=== PATIENT | female | born 1950 | race Caucasian/White ===

== ENCOUNTER → 2017-08-02 09:06 | Outpatient (CLI) | payer MEDICARE, SELFPAY ==
[2017-08-02 10:42] LABS: AST(SGOT) 10 U/L (15-37); Alanine Aminotransfer ALT/SGPT 19 U/L (13-56); Cholesterol 202 mg/dL (200); High Density Lipoprotein 59 mg/dL; T4 Total, Thyroxin 10.4 ug/dL (4.8-13.9); Thyroid Stim Hormone (TSH) 0.76 uIU/mL (0.358-3.74); Triglycerides 85 mg/dL; Very Low Density Lipoprotein 17 mg/dL (5-40)
== END ==
PROVIDERS: Visit Provider Family Medicine
DX: Z00.00 Encounter for general adult medical examination without abnormal findings (principal)
CPT/HCPCS: 36415; 80061; 84436; 84443; 84450; 84460

== ENCOUNTER → 2018-05-11 06:57 | Outpatient (CLI) | payer MEDICARE, SELFPAY ==
--- NOTE | 2018-05-11 07:01 | BI_ITS ---
MAMMOGRAPHY - BILATERAL SCREENING REASON FOR EXAM: Female, 67 years old. Routine annual screening examination. PERTINENT HISTORY: Non-contributory. TECHNIQUE: Digital bilateral breast conchita (3D mammographic acquisition) in the CC and MLO projections. 2-D mediolateral oblique (MLO) and craniocaudad (CC) views of both breasts were obtained. CAD: Full Field Digital Mammography with Computer Added Detection was performed. COMPARISON: Comparison is made with prior study dated February 02, 2017 and January 14, 2016. FINDINGS: Breast Composition: There are scattered areas of fibroglandular density. There are no dominant masses or suspicious calcifications. Stable benign-appearing bilateral axillary lymph nodes. No other significant abnormalities are identified. There has been no significant change since the prior study. BI/SCREENING MAMM (CAD), BILAT IMPRESSION: Stable bilateral screening mammogram. Yearly follow-up mammogram recommended. (A) ASSESSMENT CATEGORY: BIRADS Category 2: Benign. A letter regarding these results will be sent to the patient by the facility within 30 days. Approximately 10% of breast cancers are not detected by mammography. A normal mammogram should not delay biopsy of a clinically suspicious abnormality. [id number] Electronically Signed: Edmond Mo MD at 14:49 EST Tel [phone], Service support ,
== END ==
PROVIDERS: Family Provider Family Medicine; PCP Family Medicine; Referring Provider Family Medicine; Visit Provider Family Medicine
DX: Z12.31 Encounter for screening mammogram for malignant neoplasm of breast (principal)
CPT/HCPCS: 77063; 77067

== ENCOUNTER → 2018-08-06 09:08 | Outpatient (CLI) | payer MEDICARE, SELFPAY ==
[2017-01-03 18:05] VITALS: BMI 21.2
[2018-08-06 10:53] LABS: Cholesterol 220 mg/dL (200); High Density Lipoprotein 66 mg/dL; T3 Uptake 37 % (30-39); Thyroid Stim Hormone (TSH) 0.56 uIU/mL (0.358-3.74); Triglycerides 112 mg/dL; Very Low Density Lipoprotein 22 mg/dL (5-40)
== END ==
PROVIDERS: Family Provider Family Medicine; PCP Family Medicine; Referring Provider Family Medicine; Visit Provider Family Medicine
DX: Z00.00 Encounter for general adult medical examination without abnormal findings (principal)
CPT/HCPCS: 36415; 80061; 84439; 84443; 84479

== ENCOUNTER → 2019-08-04 10:07 | Outpatient (CLI) | payer MEDICARE, SELFPAY ==
[2017-01-03 18:05] VITALS: BMI 21.2
[2019-08-04 13:12] LABS: Cholesterol 232 mg/dL (200); High Density Lipoprotein 64 mg/dL; Thyroid Stim Hormone (TSH) 0.29 uIU/mL (0.358-3.74); Triglycerides 106 mg/dL; Very Low Density Lipoprotein 21 mg/dL (5-40)
== END ==
PROVIDERS: PCP Family Medicine; Referring Provider Family Medicine; Visit Provider Family Medicine
DX: Z00.00 Encounter for general adult medical examination without abnormal findings (principal); E03.9 Hypothyroidism, unspecified
CPT/HCPCS: 36415; 80061; 84436; 84443

== ENCOUNTER → 2019-08-09 08:28 | Outpatient (CLI) | payer MEDICARE, SELFPAY ==
[2017-01-03 18:05] VITALS: BMI 21.2
--- NOTE | 2019-08-09 08:30 | BI_ITS ---
MAMMOGRAPHY - BILATERAL SCREENING REASON FOR EXAM: Female, 69 years old. Routine annual screening examination. PERTINENT HISTORY: Non-contributory. TECHNIQUE: Digital bilateral breast kevon (3D mammographic acquisition) in the CC and MLO projections. 2-D mediolateral oblique (MLO) and craniocaudad (CC) views of both breasts were obtained. CAD: Full Field Digital Mammography with Computer Added Detection was performed. COMPARISON: Comparison is made with prior study dated May 11, 2018 and February 02, 2017. FINDINGS: Breast Composition: There are scattered areas of fibroglandular density. There are no dominant masses or suspicious calcifications. Stable benign-appearing bilateral axillary lymph nodes. No other significant abnormalities are identified. There has been no significant change since the prior study. BI/SCREEN MAMM (CAD) W/KEVON BILAT IMPRESSION: Stable bilateral screening mammogram. Yearly follow-up mammogram recommended. (A) ASSESSMENT CATEGORY: BIRADS Category 2: Benign. A letter regarding these results will be sent to the patient by the facility within 30 days. Approximately 10% of breast cancers are not detected by mammography. A normal mammogram should not delay biopsy of a clinically suspicious abnormality. [id number] Electronically Signed: Edmond Mo, at 10:44 EDT , Service support ,
== END ==
PROVIDERS: PCP Family Medicine; Referring Provider Family Medicine; Visit Provider Family Medicine
DX: Z12.31 Encounter for screening mammogram for malignant neoplasm of breast (principal)
CPT/HCPCS: 77063; 77067

== ENCOUNTER → 2019-08-28 11:38 | Outpatient (CLI) | payer MEDICARE, SELFPAY ==
[2017-01-03 18:05] VITALS: BMI 21.2
--- NOTE | 2019-08-28 11:42 | RAD_ITS ---
STUDY: X-RAY RIGHT FOOT, GREAT TOE REASON FOR EXAM: Female, 69 years old. RIGHT GREAT TOE SWELLING AND PAIN FOR A FEW DAYS NOW. NO KNOWN INJURY. TECHNIQUE: 3 view(s) of the toe were obtained. COMPARISON: None. FINDINGS: Normal visualized metatarsus. Normal metatarsophalangeal (M.T.P) joint. Normal interphalangeal joints. Normal phalanges and interphalangeal joints. Soft tissue swelling. RAD/Toe(s) Min 2 Views IMPRESSION: Soft tissue swelling. Electronically Signed: Edmond Mo, at 15:05 EDT , Service support ,
== END ==
PROVIDERS: PCP Family Medicine; Referring Provider Family Medicine; Visit Provider Family Medicine
DX: M79.89 Other specified soft tissue disorders (principal)
CPT/HCPCS: 73660

== ENCOUNTER → 2020-08-06 08:17 | Outpatient (CLI) | payer MEDICARE, SELFPAY ==
[2017-01-03 18:05] VITALS: BMI 21.2
[2020-08-06 10:35] LABS: Anion Gap 4 (5-15); BUN 9 mg/dL (7-18); BUN/Creat Ratio 11.3 RATIO (10-20); Calcium,Total 9.3 mg/dL (8.5-10.1); Chloride 106 mmol/L (98-107); Cholesterol 246 mg/dL (200); EST Glomerular Filtration Rate 75 mL/min (>60); Est Glom Filt Rate - Afr Amer 91 mL/min (>60); Glucose 90 mg/dL (74-106); High Density Lipoprotein 67 mg/dL; Sodium Level 138 mmol/L (136-145); T4 Total, Thyroxin 11.7 ug/dL (4.8-13.9); Triglycerides 138 mg/dL; Very Low Density Lipoprotein 28 mg/dL (5-40)
== END ==
PROVIDERS: PCP Family Medicine; Referring Provider Family Medicine; Visit Provider Family Medicine
DX: Z00.00 Encounter for general adult medical examination without abnormal findings (principal); E03.9 Hypothyroidism, unspecified
CPT/HCPCS: 36415; 80048; 80061; 84436; 84443

== ENCOUNTER → 2020-08-22 09:23 | Outpatient (CLI) | payer MEDICARE, SELFPAY ==
--- NOTE | 2020-08-22 09:26 | BI_ITS ---
MAMMOGRAPHY - BILATERAL SCREENING REASON FOR EXAM: Female, 70 years old. Routine annual screening examination. PERTINENT HISTORY: Non-contributory. TECHNIQUE: Digital bilateral breast conchita (3D mammographic acquisition) in the CC and MLO projections. 2-D mediolateral oblique (MLO) and craniocaudad (CC) views of both breasts were obtained. CAD: Full Field Digital Mammography with Computer Added Detection was performed. COMPARISON: Comparison is made with prior examination dated 08/09/2019 and 05/11/2018. FINDINGS: Breast Composition: There are scattered areas of fibroglandular density. There are no dominant masses or suspicious calcifications. Stable benign appearing bilateral axillary lymph nodes. No other significant abnormalities are identified. There has been no significant change since the prior study. BI/SCREENING MAMM (CAD), BILAT IMPRESSION: Stable bilateral screening mammogram. Yearly follow-up mammogram recommended. (A) ASSESSMENT CATEGORY: BIRADS Category 2: Benign. A letter regarding these results will be sent to the patient by the facility within 30 days. Approximately 10% of breast cancers are not detected by mammography. A normal mammogram should not delay biopsy of a clinically suspicious abnormality. [id number] Electronically Signed: Edmond Mo MD at 10:36 EDT , Service support ,
--- NOTE | 2020-08-22 09:30 | BD_ITS ---
STUDY: DUAL ENERGY X-RAY ABSORPTIOMETRY / DXA REASON FOR EXAM: Female, 70 years old. V780. The patient is postmenopausal. Loss of height. TECHNIQUE: Bone Mineral Density (BMD) measurements of lumbar spine and bilateral hips were obtained. COMPARISON: Comparison is made with prior examination dated 12/27/2014. FINDINGS: Lumbar Spine (L1-L4): g/cm2 (0.716) / T-score (-3.9) / Z-score (-2.2) Findings are suggestive of osteoporosis with a high fracture risk. Left Femur Total: g/cm2 (0.654) / T-score (-2.8) / Z-score (-1.2) Left Femoral Neck: g/cm2 (0.662) / T-score (-2.7) / Z-score (-0.9) Right Femur Total: g/cm2 (0.684) / T-score (-2.6) / Z-score (-1.0) Right Femoral Neck: g/cm2 (0.700) / T-score (-2.4) / Z-score (-0.6) The T-Scores on the most recent prior examination were: Lumbar Spine (L1-L4): There has been worsening of bone density since the previous examination. Left Femur Total: which represents a worsening of 14.8%. Right Femur Total: which represents a worsening of 10.8%. BD/Dexa Bone Density Study IMPRESSION: The patient is considered osteoporotic as outlined below according to World [employer] Organization (WHO) criteria with a high fracture risk. There has been worsening of bone density since the previous examination. Reference Information: The T-score is the number of standard deviations above or below the standard which is normal for young adults at their peak bone mineral density. The World Health Organization (WHO) interprets the T-scores as follows: Above -1 Normal bone density Between -1 and -2.5 Osteopenia Equal to / or below -2.5 Osteoporosis As a practical clinical guideline, osteopenia may be graded as follows: Mild -1 through -1.5 Moderate -1.6 through -2.0 Severe -2.1 through -2.4 The Z-score is the number of standard deviations above or below age-matched controls. A Z-score of less than -1.5 would be considered abnormal. References: 1. NIH Osteoporosis and Related Bone Diseases www osteo.org 2. International Society for Clinical Densitometry www iscd.org 3. National Osteoporosis Foundation www nof.org Electronically Signed: Edmond Mo MD at 14:29 EDT , Service support ,
--- NOTE | 2020-08-22 09:30 | BD_ITS ---
STUDY: DUAL ENERGY X-RAY ABSORPTIOMETRY / DXA REASON FOR EXAM: Female, 70 years old. 627.8Menopausal post menopausalBONE DENSITY REASON FOR EXAM TECHNIQUE: Bone Mineral Density (BMD) measurements of thoracic and lumbar spine hips were obtained. COMPARISON: None. FINDINGS: There is approximate 60% loss of height of the T9 vertebrae. Approximate 50% loss of height of the T12 vertebrae. BD/Vert Fx Assess/Lat Bone Den IMPRESSION: 60% loss of height of the T9 vertebrae and approximately 50% loss of height of the T12 vertebrae. Reference Information: The T-score is the number of standard deviations above or below the standard which is normal for young adults at their peak bone mineral density. The World Health Organization (WHO) interprets the T-scores as follows: Above -1 Normal bone density Between -1 and -2.5 Osteopenia Equal to / or below -2.5 Osteoporosis As a practical clinical guideline, osteopenia may be graded as follows: Mild -1 through -1.5 Moderate -1.6 through -2.0 Severe -2.1 through -2.4 The Z-score is the number of standard deviations above or below age-matched controls. A Z-score of less than -1.5 would be considered abnormal. References: 1. NIH Osteoporosis and Related Bone Diseases www osteo.org 2. International Society for Clinical Densitometry www iscd.org 3. National Osteoporosis Foundation www nof.org Electronically Signed: Edmond Mo MD at 14:37 EDT , Service support ,
== END ==
PROVIDERS: PCP Family Medicine; Referring Provider Family Medicine; Visit Provider Family Medicine
DX: Z12.31 Encounter for screening mammogram for malignant neoplasm of breast (principal); N95.9 Unspecified menopausal and perimenopausal disorder; R93.7 Abnormal findings on diagnostic imaging of other parts of musculoskeletal system
CPT/HCPCS: 77067; 77080; 77086

== ENCOUNTER 2021-01-19 09:44 | Emergency (ER) | payer MEDICARE, SELFPAY ==
[2021-01-19 09:45] VITALS: BP 107/70; PULSE 52; RESP 15; TEMP 36.1; BMI 21.9
--- NOTE | 2021-01-19 09:50 | EDS_ITS ---
HPI History of Present Illness Chief Complaint: Upper Extremity Injury Detail of Chief Complaint: Injury right shoulder after fall Informant: patient Occured/Mechanism Mechanism/Context: Yes same level fall Onset/Context/Timing Onset: Hours Context: Sudden Onset Timing: Continuous Quality of Pain: Dull and Aching Location: Left shoulder Current Severity: Mild Maximum Severity: Severe Worsened by: Any attempt or passive movement of left upper extremity Relieved by: Nothing Associated Symptoms Associated Symptoms: Positive for Loss of Funtion; Negative for Parasthesia and Weakness Narrative Narrative: Patient is a 70-year-old woman who presents after mechanical fall. She states she turned to turn on a speck it. She fell. She states she landed on a metal sill with her left upper extremity AB ducted. She denies paresth esia, anesthesia medics. Denies head trauma. Denies neck pain. She denies chest pain. Denies shortness of breath. She is not on an anticoagulant. She is right-hand dominant. Tetanus Immunization: Unknown Prior similar symptoms: No Recent Illness/Hospitalization: No PFSH PFSH Home Medications levothyroxine 100 mcg PO DAILY 01/03/17 [History Last Taken Unknown] oxycodone-acetaminophen 1 tab PO Q6H PRN PRN 5 Days #20 tablet 01/19/21 [Rx Last Taken Unknown] Allergy/AdvReac Type Severity Reaction Status Date / Time Sulfa (Sulfonamide AdvReac Nausea Verified 01/19/21 09:45 Antibiotics) Social History (Updated 01/19/21 @ 09:[address] Kraig Benavides MD) household members: none housing: house Smoking Status: Never smoker alcohol intake: current alcohol intake frequency: holidays/special occasions only substance use type: does not use ROS ROS ED Constitutional Constitutional ED: Denies chills, frequent falls or subjective Eyes Eyes: Denies blurry vision, change in vision or diplopia ENT ENT ED: Denies ear pain Cardiovascular Cardiovascular: Denies chest pain Respiratory/Chest Respiratory/Chest: Denies dyspnea or dyspnea on exertion Gastrointestinal Gastrointestinal: Denies nausea or vomiting Musculoskeletal Musculoskeletal: Denies back pain, myalgias or neck pain Integumentary Denies Abrasions or rash Neurologic Neurologic: Denies paresthesias or weakness Hematologic/Lymphatic Hematologic/Lymphatic: Denies easy bleeding or easy bruising EXAM Physical Exam Const Vital Signs: 01/19/21 09:45 Temperature 97.0 F L Temperature Source Temporal Pulse Rate 52 L Respiratory Rate 15 Blood Pressure 107/70 Blood Pressure Mean 82 Positive well nourished and well developed General Appearance ED: well developed and other Patient appears uncomfortable. She does not move her left upper extremity while walking. She holds her left upper extremity internally rotated and against her body. ; Negative for cyanotic or diaphoretic HEENT normocephalic and atraumatic Eyes PERRL and EOMs intact bilaterally Neck supple Chest Wall inspection of chest normal and palpation of chest normal Resp normal respiratory effort and clear to auscultation bilaterally Cardio regular rate, regular rhythm and no murmurs Back/Spine no CVA tenderness Extremity Negative for normal to inspection or full ROM Extremity Narrative: There is swelling over the proximal left humerus. There is pain to palpation. Is no pain the patient of the clavicle or AC joint. Axillary, median, radial and ulnar function intact. There is no pain the patient over the lateral medial epicondyle, olecranon process or radial head. There is no elevation of the distal radius or ulna. Is no pain to base over the carpal bones, metacarpal bones or phalanges. Radial pulses palpable. General Extremety ED: Yes edema General Extremity: edema Neuro oriented x3, CN's II-XII intact bilaterally and no sensory deficits noted Sensorium / Orientation: alert Psych mental status grossly normal Skin Lesions: no lesions Rashes: no rashes Trauma: no lacerations or abrasions MDM MDM MDM Narrative Medical decision making narrative: IV was established and she was medicated with IV morphine and Zofran. X-ray of the shoulder was obtained to assess for fracture, fracture dislocation versus other cause. If there is no evidence of fracture and with her unable to AB duct findings would be consistent with a rotator cuff tear. Radiography Diagnostic Testin view x-ray of the left shoulder reveals an impacted fracture of the humeral head with fragment of the greater tuberosity noted. This is not displaced. Treatment is sling and swath. This was interpreted by me. Discharge Plan Triage Chief Complaint: Upper Extremity Injury ED Provider: Kraig Benavides Dx/Rx/DC Orders Clinical Impression: Fracture of proximal end of left humerus Instructions: ED Fracture, Shoulder Prescriptions: New oxycodone-acetaminophen [oxycodone-acetaminophen] 1 TABLET tablet 1 tab PO Q6H PRN PRN (Reason: pain) 5 Days Qty: 20 RF: 0 No Action levothyroxine 100 MCG tablet 100 mcg PO DAILY RF: 0 Primary Care Provider: Beth Ji Referrals: Beth Ji MD [Primary Care Provider] - Carl Lassiter DO [STAFF PHYSICIAN] - 5-7 Days Disposition Disposition: Home, Self Care
[2021-01-19] MEDS: Ondansetron 4 MG/2 ML Vial IV (10:04)
[2021-01-19] MEDS: Morphine 4 MG/ML Syringe IV (10:05)
--- NOTE | 2021-01-19 10:10 | RAD_ITS ---
STUDY: X-RAY - LEFT SHOULDER REASON FOR EXAM: Female, 70 years old. Injury/Pain TECHNIQUE: 2 view(s) of the shoulder. COMPARISON: None. FINDINGS: There is mild degenerative arthrosis of the glenohumeral articulation. Normal acromioclavicular joint. Normal acromion. There is an acute impacted appearing fracture of the left humeral head with the fracture fragment seen adjacent to the left humeral head. There is narrowing of the left glenohumeral joint without dislocation. There is soft tissue edema. Normal visualized pulmonary apex. RAD/Shoulder min 2 Views IMPRESSION: Acute left humeral head fracture. Electronically Signed: Jenae Casas MD at 10:22 EDT Tel , Service support ,
[2021-01-19 10:58] VITALS: PULSE 56; RESP 17; O2SAT 97
== END 2021-01-19 10:59 | disposition home or self-care (01) ==
LOC: ED 10:52
PROVIDERS: Emergency Provider Emergency Medicine; PCP Family Medicine
DX: S42.202A Unspecified fracture of upper end of left humerus, initial encounter for closed fracture (principal); W19.XXXA Unspecified fall, initial encounter; Z79.899 Other long term (current) drug therapy
CPT/HCPCS: 73030; 96374; 96375; 99284; A4216; J2405

== ENCOUNTER → 2021-01-22 17:06 | Outpatient (CLI) | payer MEDICARE, SELFPAY ==
--- NOTE | 2021-01-22 17:13 | CT_ITS ---
STUDY: CT LEFT SHOULDER REASON FOR EXAM: Female, 70 years old. LT SHOULDER FX, TRUE SIGHT RADIATION DOSAGE (If Supplied By Facility): CTDIvol = ( 26.22 ) mGy, DLP = ( 597.15 ) mGycm TECHNIQUE: The patient was scanned in a multi detector CT scanner. High resolution transaxial imaging was performed without the administration of intravenous contrast material. Sagittal and coronal images were reconstructed.The images will be utilized by the surgical prosthesis junior web developer for measurement and planning purposes.. Individualized dose optimization techniques were used for this CT. COMPARISON: None. FINDINGS: No dislocation. Normal glenoid rim, neck and visualized scapula. Impacted comminuted fracture of the left subcapital region. Significant deformity to the residual humeral head. Normal coracoid process. Normal visualized lateral clavicle. Normal acromioclavicular articulation. Normal visualized muscles and soft tissue structures. CT/Extremity Upper without Contra IMPRESSION: Comminuted left humeral fracture. The images will be utilized by the surgical prosthesis junior web developer for measurement and planning purposes.. Electronically Signed: Zenon Ponce MD at 13:39 EDT , Service support ,
== END ==
PROVIDERS: PCP Family Medicine; Visit Provider Student in an Organized Health Care Education/Training Program
DX: S42.222A 2-part displaced fracture of surgical neck of left humerus, initial encounter for closed fracture (principal)
CPT/HCPCS: 73200

== ENCOUNTER 2021-02-04 05:20 | Day surgery (SDC) | payer MEDICARE, SELFPAY ==
--- NOTE | 2021-01-27 13:59 | EKG12_ITS ---
Test Reason : PRE OP Blood Pressure : / mmHG Vent. Rate : 060 BPM Atrial Rate : 060 BPM P-R Int : 148 ms QRS Dur : 068 ms QT Int : 402 ms P-R-T Axes : 070 063 055 degrees QTc Int : 402 ms Normal sinus rhythm Low voltage QRS Borderline ECG Confirmed by KURTIS MANTILLA, WILFREDO ([id number]), purchasing expeditor CHASTITY TODD ([id number]) on 01/28/2021 1:54:30 PM Referred By: Carl Lassiter Confirmed By:WILFREDO HULL MD
[2021-01-27 15:26] LABS: Magnesium 2.3 mg/dL (1.6-2.6)
[2021-01-27 15:28] LABS: Thyroid Stim Hormone (TSH) 4.51 uIU/mL (0.358-3.74)
[2021-02-04] VITALS (7 sets, daily range): BP systolic 93–120; BP diastolic 59–72; PULSE 62–80; RESP 16; TEMP 36.4–36.8; O2SAT 92–98; BMI 21.7
[2021-02-04] MEDS: Gabapentin 600 MG Tablet PO (06:30)
[2021-02-04] MEDS: Acetaminophen 500 MG Tablet 1000 MG PO (06:30)
[2021-02-04] MEDS: Lactated Ringers 1,000 ML 100 ML IV (06:30)
[2021-02-04 06:31] LABS: Bedside Glucose 92 mg/dL (70-110)
[2021-02-04] MEDS: Cefazolin 2 GM in 0.9% Normal Saline 100 ML IV (07:41)
--- NOTE | 2021-02-04 10:06 | PCM.DC ---
Discharge Instructions Follow Up Care Test Results: Test results from this visit will be discussed in further detail at your follow-up appointment, if applicable. Discharge Plan Admission Attending Provider: Carl Lassiter Primary Care Provider: Beth Ji Instructions Additional Instructions / Restrictions: Maintain sling at all times except for hygiene until follow-up. Okay for pendulums of the left arm, otherwise no active or passive range of motion until follow-up in 2 weeks. Okay to shower on postoperative day #4., 02/08/2021. Maintain dressing x7 days. Then okay to remove and leave open to air if no drainage Discharge Orders/Prescriptions Prescriptions: New oxycodone-acetaminophen [Percocet] 5-325 mg tablet 1 tab PO Q6H PRN (Reason: pain) 7 Days Qty: 28 RF: 0 No Action levothyroxine 100 MCG tablet 100 mcg PO DAILY RF: 0 oxycodone-acetaminophen [oxycodone-acetaminophen] 1 TABLET tablet 1 tab PO Q6H PRN PRN (Reason: pain) 5 Days Qty: 20 RF: 0 Referrals / Follow Up: Beth Ji MD [Primary Care Provider] - Carl Lassiter DO [STAFF PHYSICIAN] - Within 2 Weeks Disposition Disposition (needs filled in before D/C Order can be placed): Home, Self Care
--- NOTE | 2021-02-04 10:23 | PCM.OPRPT ---
Problems Associated Problem List Diagnoses (1) Closed 4-part fracture of proximal end of left humerus: Report of Operation Date of Procedure: 02/04/21 Description of Surgical Findings:: Preoperative diagnosis: Left displaced 4 part proximal humerus fracture Postoperative diagnosis: Left displaced 4 part proximal humerus fracture Procedure: Left reverse total shoulder arthroplasty Surgeon: Carl Lassiter DO Micro Computer Data Processor: JERZY Pederson Anesthesia: General endotracheal Anesthesiologist: Dr. Mikaela Hummel CRNA Complications: None apparent Drains: None Estimated blood loss: 100 cc Urinary output: None cc IV fluids: 1500 cc crystalloid Specimens: None Surgical implants: Arthrex universe modular glenoid system 24 mm baseplate 20 degree full augment, modular post 20 mm, nonlocking screw 4.5 mm x 40 mm, 4.5 mm x 28 mm, locking screws times two 5.5 mm x 16 mm, glenosphere 36 millimeters +2.5 inferior/24, glenosphere screw, universe reverse humeral stem size five 135 degree modular, suture cup 36 neutral, humeral insert 36+3 Surgical indications: This is a 70-year-old female who had a fall and sustained a left four-part proximal humerus fracture. She was seen in the [facility] emergency department and follow-up in my office. CT was obtained confirming the diagnosis. There was a head split component. Given the CT findings and her age, I recommended a reverse shoulder arthroplasty. We discussed open reduction internal fixation versus reverse. The risk, benefits, alternatives the procedure was reviewed with the patient and she agreed to proceed. Risks included but were not limited to bleeding, infection, instability, loss of life or limb, risk of anesthesia, neurovascular injury, persistent pain, stiffness, prolonged immobilization, need for additional surgery, loosening of orthopedic hardware, nonhealing of tuberosities. She expressed understanding and wished to proceed with surgery. Surgical details: Patient arrived to [facility] morning of 02/04/2021 and was greeted by the same day surgery staff. Prior to her procedure, I greeted the patient in the preoperative holding area I identified the patient by name, record number, and date of . Informed consent was confirmed. The operative extremity was marked. All questions were answered to patient satisfaction. Patient was also seen by anesthesia staff. Interscalene block was administered prior to procedure for postoperative analgesia. At time of her procedure, patient was brought to the operative suite and positioned supine on a standard table with a beachchair attachment. General anesthesia was induced after all bony prominences were well-padded. Endotracheal tube was placed. After adequate anesthesia and securing the tube, we prepared the patient to be positioned in the beachchair position. A well-padded head filter press tender was applied. The nonoperative extremity was placed in a well arm johnson. She was then brought into the beachchair position after we confirmed an appropriate blood pressure. We then spun the bed 45 degrees. The operative extremity was then prepared. In the butterfly wing of the bed was removed and a well-padded torso strap was applied to secure the patient to the bed. The operative extremity was now free. We then prepped and draped the left upper extremity in normal, sterile orthopedic fashion. We then performed a timeout with all parties in attendance in agreement with the side, site, and operation be performed. 2 g Ancef was administered prior to incision by anesthesia staff, as well as 1 g TXA IV. An additional 1 g TXA IV was administered at time of closure. No concerns were voiced and we elected to proceed. I first marked a standard deltopectoral incision just lateral to the coracoid process in line with the long axis of the humerus. Skin was sharply incised with 10 blade scalpel. I then dissected bluntly through the subcutaneous layers and found the fat stripe between the deltoid and pectoralis major. The cephalic vein was then identified and protected. It was retracted laterally with the deltoid. I then bluntly dissected underneath the deltoid with a Valdivia elevator. This quickly identified the fracture site. The upper 1 cm of the pectoralis major was released. Identified the long head of the biceps tendon in the intertubercular groove. This was tenodesed in situ with #2 FiberWire. I then amputated the biceps proximal to the tenodesis site and followed the tendon to the supraglenoid tubercle where it was amputated. This identified the lesser and greater tuberosities. I tagged the supraspinatus and subscapularis respectively with #2 FiberWire suture for later repair. The humeral head was then exposed and removed, placed on the back table. Retractors were placed around the glenoid to expose the glenoid. Glenoid labrum was removed with Bovie cautery protecting the axillary nerve, which was in close proximity to the glenoid neck. We then used the 5D guide from Arth[employer] to position our centering pin. Guide was removed and pin was analyzed and compared to preoperative planning. It appeared to be in appropriate position. We used the 20 degree augment reamer with the apex of the augment at approximately at 1:00 on the clock face. This was reamed about 3 mm deep. We then remove the reamer and used the cannulated drill for the central 20 mm post. Pin was removed. Post and baseplate was assembled on the back table. We then impacted the assembled baseplate to an appropriate depth. A [place] was used to confirm depth. Cortical screws then were placed in the most superior and inferior holes with good purchase. Anterior and posterior holes were then placed with 16mm locking screws. The baseplate had excellent purchase and the entire scapula would rotate with rotation of the baseplate. We then impacted the 36 mm glenosphere with a +2.5 mm inferior eccentricity. Locking screw was then placed in the centering hole of the glenosphere with excellent purchase. We then removed retractors and turned our attention to the humerus. The calcar appeared to be intact. We utilized 40 mm retroversion for placement of our broaches. We were able to place a size 5 broach with good interference fit in the metaphysis. We selected this as our final size. I copiously irrigated the canal. Broach was placed on hand and then impacted to an appropriate depth. I then trialed with a +3 mm poly and brought through a range of motion. No significant impingement or instability was noted even prior to tuberosity repair. Trials were removed and final +3 mm polyethylene was placed. I then copiously irrigated the wound with irrisept and normal saline solution. Hemostasis was excellent. The axillary nerve was visualized and appeared to be intact. I then passed a cerclage #2 FiberWire through the supraspinatus around the back of the implant and through the subscapularis. This was tied to close the rotator interval. I then secured the subscapularis tag suture and supraspinatus tack suture to drill holes in the anterior humeral neck. I then tied the sutures together to again close interval. I then placed a [id number] suture through the anterior superior region of the supraspinatus down to the subscapularis to further close the rotator interval. The entire proximal humeral segment appeared to move as 1. We then copiously irrigated the wound with normal saline solution. We reapproximated the interval with 0 Vicryl suture. Subcutaneous layers were reapproximated with 3-0 Monocryl suture. Skin was finally running V-Loc Monocryl suture and Dermabond. A sterile silver Mepilex dressing was applied. Patient was then placed in a abduction pillow sling. Patient tolerated procedure well without complication. She was positioned back in the supine position extubated in the operative suite. She was transferred to the [facility] and subsequently to PACU in stable condition. Intraoperative medications: 2 g Ancef IV, 1 g TXA x2 IV Post Operative Plan: Weightbearing: Nonweightbearing left upper extremity, okay for pendulums. Range of motion of wrist elbow and hand as tolerated. Antibiotics: 2 g Ancef IV prior to incision, Keflex x23 hours postop DVT Prophylaxis: Aspirin 81 mg twice daily starting tomorrow Dean: None Dressing: Maintain silver dressing x7 days. Okay to shower dressing on started on day 4 X-Rays: 2 weeks postop in the office Pain Medication: Percocet Rx upon discharge Follow-up: 2 weeks post-operatively with me in the office Discharge summary: Date of admission: 02/04/2021 Date of discharge 02/04/2021 Hospital course: Patient underwent the above procedure with plan same-day surgery. She tolerated procedure well without complication. She was able to be safely discharged to home in stable condition.
--- NOTE | 2021-02-04 10:40 | RAD_ITS ---
STUDY: X-RAY - LEFT SHOULDER REASON FOR EXAM: Postoperative evaluation of left shoulder arthroplasty. TECHNIQUE: 2 view(s) of the shoulder. COMPARISON: Radiographs 01/19/2021. FINDINGS: There is a reverse shoulder arthroplasty without evidence of complication. There is postoperative gas in the soft tissues. There is mild atelectasis at the left lung base. RAD/Shoulder min 2 Views IMPRESSION: Uncomplicated left shoulder arthroplasty. Electronically Signed: Ru Germain MD at 11:11 EDT Tel , Service support ,
== END 2021-02-04 12:25 | disposition home or self-care (01) ==
LOC: SDC 05:27 → AC 05:28
PROVIDERS: Anesthesiology; PCP Family Medicine; Referring Provider Student in an Organized Health Care Education/Training Program; Visit Provider Student in an Organized Health Care Education/Training Program
PROC: (CPT 23472; principal; 2021-02-04 07:00)
DX: S42.242A 4-part fracture of surgical neck of left humerus, initial encounter for closed fracture (principal); W19.XXXA Unspecified fall, initial encounter; Y93.9 Activity, unspecified; Y92.9 Unspecified place or not applicable; Y99.9 Unspecified external cause status; M19.90 Unspecified osteoarthritis, unspecified site; Z79.899 Other long term (current) drug therapy; Z79.890 Hormone replacement therapy; E03.9 Hypothyroidism, unspecified; E78.00 Pure hypercholesterolemia, unspecified
CPT/HCPCS: 01638; 23472; 64450; 36415; 73030; 82962; 83735; 84443; 87077; 87081; 93005; C1713; C1776; J7120; J2405; J3475

== ENCOUNTER 2021-08-11 16:17 | Outpatient (CLI) | payer MEDICARE, SELFPAY ==
[2021-08-11 18:22] LABS: Cholesterol 203 mg/dL (200); High Density Lipoprotein 53 mg/dL; T4 Total, Thyroxin 11.4 ug/dL (4.8-13.9); Thyroid Stim Hormone (TSH) 1.68 uIU/mL (0.358-3.74); Triglycerides 209 mg/dL; Very Low Density Lipoprotein 42 mg/dL (5-40)
== END 2021-08-11 23:59 | disposition home or self-care (01) ==
PROVIDERS: PCP Family Medicine; Visit Provider Family Medicine
DX: Z00.00 Encounter for general adult medical examination without abnormal findings (principal); E03.9 Hypothyroidism, unspecified
CPT/HCPCS: 36415; 80061; 84436; 84443

== ENCOUNTER → 2021-09-03 | Outpatient (CLI) | payer MEDICARE, SELFPAY ==
--- NOTE | 2021-09-03 08:36 | BI_ITS ---
MAMMOGRAPHY - BILATERAL SCREENING REASON FOR EXAM: Female, 71 years old. Routine annual screening examination. PERTINENT HISTORY: Non-contributory. TECHNIQUE: Digital bilateral breast kevon (3D mammographic acquisition) in the CC and MLO projections. 2-D mediolateral oblique (MLO) and craniocaudad (CC) views of both breasts were obtained. CAD: Full Field Digital Mammography with Computer Added Detection was performed. COMPARISON: Comparison is made with prior study dated 08/22/2020 and 08/09/2019. FINDINGS: Breast Composition: There are scattered areas of fibroglandular density. There are no dominant masses or suspicious calcifications. Stable benign-appearing bilateral axillary lymph nodes. No other significant abnormalities are identified. There has been no significant change since the prior study. BI/SCRN MAMM (CAD)W/KEVON BILAT IMPRESSION: Stable bilateral screening mammogram. Yearly follow-up mammogram recommended. (A) ASSESSMENT CATEGORY: BIRADS Category 2: Benign. A letter regarding these results will be sent to the patient by the facility within 30 days. Approximately 10% of breast cancers are not detected by mammography. A normal mammogram should not delay biopsy of a clinically suspicious abnormality. [id number] Electronically Signed: Edmond Mo MD at 9:49 EDT ,
== END | disposition home or self-care (01) ==
LOC: OPBI 08:34
PROVIDERS: PCP Family Medicine; Visit Provider Family Medicine
DX: Z12.31 Encounter for screening mammogram for malignant neoplasm of breast (principal)
CPT/HCPCS: 77063; 77067

== ENCOUNTER → 2022-08-12 | Outpatient (CLI) | payer MEDICARE, SELFPAY ==
[2022-08-12 12:36] LABS: Cholesterol 205 mg/dL (200); High Density Lipoprotein 67 mg/dL; T4 Total, Thyroxin 9.8 ug/dL (4.8-13.9); Thyroid Stim Hormone (TSH) 0.84 uIU/mL (0.358-3.74); Triglycerides 83 mg/dL; Very Low Density Lipoprotein 17 mg/dL (5-40)
== END | disposition home or self-care (01) ==
LOC: MFPLAB 10:24
PROVIDERS: PCP Family Medicine; Referring Provider Family Medicine; Visit Provider Family Medicine
DX: E03.9 Hypothyroidism, unspecified (principal)
CPT/HCPCS: 36415; 80061; 84436; 84443

== ENCOUNTER → 2022-09-04 | Outpatient (CLI) | payer MEDICARE, SELFPAY ==
--- NOTE | 2022-09-04 07:07 | BI_ITS ---
MAMMOGRAPHY - BILATERAL SCREENING REASON FOR EXAM: Female, 72 years old. Routine annual screening examination. PERTINENT HISTORY: Non-contributory. TECHNIQUE: Digital bilateral breast kevon (3D mammographic acquisition) in the CC and MLO projections. 2-D mediolateral oblique (MLO) and craniocaudad (CC) views of both breasts were obtained. CAD: Full Field Digital Mammography with Computer Added Detection was performed. COMPARISON: Comparison is made with prior study dated September 03, 2021 and August 22, 2020. FINDINGS: Breast Composition: There are scattered areas of fibroglandular density. There are no dominant masses or suspicious calcifications. Stable benign-appearing bilateral axillary lymph nodes. No other significant abnormalities are identified. There has been no significant change since the prior study. BI/SCRN MAMM (CAD)W/KEVON BILAT IMPRESSION: Stable bilateral screening mammogram. Yearly follow-up mammogram recommended. (A) ASSESSMENT CATEGORY: BIRADS Category 2: Benign. A letter regarding these results will be sent to the patient by the facility within 30 days. Approximately 10% of breast cancers are not detected by mammography. A normal mammogram should not delay biopsy of a clinically suspicious abnormality. [id number] Electronically Signed: Edmond Mo MD at 8:58 EDT ,
== END | disposition home or self-care (01) ==
LOC: OPBI 07:04
PROVIDERS: PCP Family Medicine; Referring Provider Family Medicine; Visit Provider Family Medicine
DX: Z12.31 Encounter for screening mammogram for malignant neoplasm of breast (principal)
CPT/HCPCS: 77063; 77067

== ENCOUNTER → 2023-08-12 | Outpatient (CLI) | payer MEDICARE, SELFPAY ==
[2023-08-12 17:55] LABS: Hemoglobin A1c 5.3 % (3.8-5.6)
[2023-08-12 18:12] LABS: Cholesterol 225 mg/dL (200); High Density Lipoprotein 64 mg/dL; T4 Total, Thyroxin 9.7 ug/dL (4.8-13.9); Thyroid Stim Hormone (TSH) 0.78 uIU/mL (0.358-3.74); Triglycerides 155 mg/dL; Very Low Density Lipoprotein 31 mg/dL (5-40)
== END | disposition home or self-care (01) ==
LOC: MFPLAB 14:21
PROVIDERS: PCP Family Medicine; Visit Provider Family Medicine
DX: R11.0 Nausea (principal); E03.9 Hypothyroidism, unspecified; Z13.1 Encounter for screening for diabetes mellitus; Z79.899 Other long term (current) drug therapy
CPT/HCPCS: 36415; 80061; 83036; 84436; 84443

== ENCOUNTER → 2023-09-16 | Outpatient (CLI) | payer MEDICARE, SELFPAY ==
--- NOTE | 2023-09-16 14:43 | BI_ITS ---
MAMMOGRAPHY - BILATERAL SCREENING REASON FOR EXAM: Female, 73 years old. Routine annual screening examination. PERTINENT HISTORY: Non-contributory. TECHNIQUE: Digital bilateral breast kevon (3D mammographic acquisition) in the CC and MLO projections. 2-D mediolateral oblique (MLO) and craniocaudad (CC) views of both breasts were obtained. CAD: Full Field Digital Mammography with Computer Added Detection was performed. COMPARISON: Comparison is made with prior study dated September 04, 2022 and September 03, 2021. FINDINGS: Breast Composition: There are scattered areas of fibroglandular density. There are no dominant masses or suspicious calcifications. Stable benign-appearing bilateral axillary lymph nodes. No other significant abnormalities are identified. There has been no significant change since the prior study. BI/SCRN MAMM (CAD)W/KEVON BILAT IMPRESSION: Stable bilateral screening mammogram. Yearly follow-up mammogram recommended. (A) ASSESSMENT CATEGORY: BIRADS Category 2: Benign. A letter regarding these results will be sent to the patient by the facility within 30 days. Approximately 10% of breast cancers are not detected by mammography. A normal mammogram should not delay biopsy of a clinically suspicious abnormality. [id number] Electronically Signed: Edmond Mo MD at 8:37 EDT ,
== END | disposition home or self-care (01) ==
LOC: OPBI 14:42
PROVIDERS: PCP Family Medicine; Referring Provider Family Medicine; Visit Provider Family Medicine
DX: Z12.31 Encounter for screening mammogram for malignant neoplasm of breast (principal)
CPT/HCPCS: 77063; 77067

== ENCOUNTER 2024-01-29 09:18 | Emergency (ER) | payer MEDICARE, SELFPAY ==
[2024-01-29 09:19] VITALS: BP 163/74; PULSE 63; RESP 14; TEMP 36.3; O2SAT 98; BMI 21.7
--- NOTE | 2024-01-29 10:02 | CT_ITS ---
INDICATION: left flank pain EXAMINATION: CT ABDOMEN AND PELVIS WITHOUT CONTRAST - CT Abdomen And Pelvis W/O Contrast Injection TECHNIQUE: Helically acquired images were obtained of the abdomen and pelvis without oral or IV contrast. The protocol utilizes one or more of the following dose reduction techniques: automated exposure control, adjustment of mA and/or kV according to patient size,and/or use of iterative reconstruction technique. IV Contrast dosage and agent: None. Oral contrast: None. RADIATION DOSAGE (If Supplied By Facility): CTDIvol = ( 6.07 ) mGy, DLP = ( 260.92 ) mGycm COMPARISON: No relevant prior comparison study available FINDINGS: LOWER CHEST: Lung bases are clear. No cardiomegaly or pericardial effusion. The lack of intravenous contrast limits evaluation of solid visceral organs. LIVER: Homogeneous. No focal mass. GALLBLADDER AND BILIARY TREE: No calcified gallstones. No gallbladder distension or wall edema. No intra- or extrahepatic biliary ductal dilation. PANCREAS: No focal cystic or solid mass. SPLEEN: There is a splenic granuloma. ADRENAL GLANDS: No nodules. KIDNEYS AND URETERS: Normal renal size and position. No hydronephrosis. PERITONEUM: No ascites or free air. No other fluid collection. BOWEL: No evidence of acute appendicitis. No stomach or bowel distension. There are diverticula arising from the colon. No focal inflammatory change. LYMPH NODES: No enlarged mesenteric or retroperitoneal lymph nodes. VESSELS: Aorta is non-dilated. There are peripheral calcifications of the abdominal aorta. URINARY BLADDER: Unremarkable. REPRODUCTIVE ORGANS: No pelvic masses. ABDOMINAL WALL: No discrete abdominal or pelvic wall hernia. BONES: The bones are diffusely demineralized. There is a T12 superior endplate deformity that appears chronic. CT/Abdomen/Pelvis without Cont IMPRESSION: Colonic diverticulosis. Atherosclerosis. Electronically Signed: Margaux Lazo MD at 11:25 EDT ,
--- NOTE | 2024-01-29 10:03 | EX.ED.DYSGE1 ---
HPI History of Present Illness Chief Complaint: Other, Pain/Inj Detail of Chief Complaint: Back pain Informant: patient Narrative Narrative: Patient presents to the emergency department complaint of left-sided back pain that she has had since yesterday. Patient tells me that she had shingles in 2006 and since then she will have intermittent nerve type pain. She called her primary care physician yesterday who started her on gabapentin and Valtrex. Today having severe pain in the left flank area and she vomited once. She denies urinary symptoms. Pain is there all the time but waxes and wanes in intensity. No history of kidney stones. No trauma or injury to her back. She denies urinary symptoms. [facility] Medical History (Updated 01/29/24 @ 11:[address] Miriam Santos DO) Wears glasses Alcohol use Thyroid disease Osteoarthritis High cholesterol Non-smoker History of stress test History of irregular heartbeat Home Medications ?Medication ?Instructions ?Recorded ?Last Taken ?Type levothyroxine 100 mcg tablet 100 mcg PO DAILY thyroid 01/03/17 Unknown History oxycodone-acetaminophen 5 mg-325 1 tab PO Q6H PRN PRN pain 5 days 01/19/21 Unknown Rx mg tablet #20 TABLETS aspirin 81 mg tablet,delayed 81 mg PO BID 14 days #28 tabs 02/04/21 Unknown Rx release cephalexin 500 mg capsule 500 mg PO Q8 1 day #3 caps 02/04/21 Unknown Rx oxycodone-acetaminophen 5 mg-325 1 tab PO Q6H PRN pain 7 days #28 02/04/21 Unknown Rx mg tablet (Percocet) tabs hydrocodone-acetaminophen 5-325mg 1 tab PO Q4H PRN PRN Pain 2 days 01/29/24 Unknown Rx 5mg-325mg #15 TABLETS Allergy/AdvReac Type Severity Reaction Status Date / Time Sulfa (Sulfonamide AdvReac Nausea Verified 01/29/24 09:19 Antibiotics) Surgical History History of colonoscopy History of partial hysterectomy History of thyroid surgery History of appendectomy Social History (Updated 01/19/21 @ 09:[address] Kraig Benavides MD) household members: none housing: house Smoking Status: Never smoker alcohol intake: current alcohol intake frequency: holidays/special occasions only substance use type: does not use ROS ROS ED Review of Systems ROS Unobtainable: other Constitutional Constitutional ED: Reports lethargy; Denies chills, fever(s), sweats or weight loss Eyes Eyes: Denies blurry vision, change in vision or diplopia ENT ENT ED: Denies rhinorrhea or sore throat Cardiovascular Cardiovascular: Denies chest pain, orthopnea or racing heartbeat Respiratory/Chest Respiratory/Chest: Denies cough, dyspnea, dyspnea on exertion, orthopnea or sputum Gastrointestinal Gastrointestinal: Denies abdominal pain, diarrhea, nausea or vomiting Genitourinary Genitourinary ED: Denies dysuria, hematuria or urinary frequency Musculoskeletal Musculoskeletal: Reports back pain; Denies arthralgias, myalgias or neck pain Integumentary Denies abscess, Abrasions or rash Neurologic Neurologic: Denies headache(s) or weakness Psychiatric Psychiatric: Denies anxiety, depression or suicidal thoughts Endocrine Endocrinology: Denies polydipsia, polyphagia or polyuria Hematologic/Lymphatic Hematologic/Lymphatic: Denies easy bleeding, easy bruising or lymphadenopathy Allergic/Immunologic Allergic/Immunologic ED: Denies mouth swelling, tongue swelling or urticaria EXAM Physical Exam Const Vital Signs: 01/29/24 09:19 01/29/24 10:25 Temperature 97.3 F L Temperature Source Temporal Pulse Rate 63 Respiratory Rate 14 Respiratory Effort Normal Blood Pressure 163/74 H Blood Pressure Mean 103 Pulse Ox 98 Oxygen Delivery Method Room Air Positive well nourished and well developed General Appearance ED: well developed and NAD HEENT Reports TM's clear and moist mucous membranes normocephalic and atraumatic; Negative for trauma or tenderness Tympanic Membrane ED: Yes TM's clear Eyes PERRL and EOMs intact bilaterally General Eye ED: Negative for pale conjunctiva or scleral icterus Neck no lymphadenopathy, supple and no JVD General: Negative for tenderness Chest Wall inspection of chest normal and palpation of chest normal Chest: Negative for tenderness Resp normal respiratory effort and clear to auscultation bilaterally Effort and Inspection: Negative for respiratory distress or pain with movement Auscultation: Negative for rhonchi, wheezes or diminished lung sounds Cardio regular rate, regular rhythm, S1 normal heart sound, S2 normal heart sound and no murmurs Peripheral Pulses: pulses 2+ throughout GI normal to inspection, nondistended, normoactive bowel sounds, soft to palpation, non-tender, non-distended and no masses Back/Spine no thoracic nor lumbar tenderness Back/Spine Narrative: Evaluation of the patient's back reveals no evidence of a rash. She does have some CVA tenderness on the left. No bony tenderness on exam over the thoracic or lumbar spine. Negative straight leg raises. Deep tendon reflexes plus 2 out of 4 bilaterally at the patella and Achilles. Patient has normal L5 extension bilaterally. General Back: CVA tenderness Extremity normal to inspection General Extremety ED: Negative for edema General Extremity: Negative for edema Neuro oriented x3, CN's II-XII intact bilaterally, no sensory deficits noted and gait normal Sensorium / Orientation: awake, alert, oriented to person, oriented to place and oriented to time Motor Exam: strength 5/5 throughout and strength abnormal Psych mental status grossly normal Skin no rashes or lesions noted and no wounds MDM MDM MDM Narrative Medical decision making narrative: Patient with left back/flank pain and history of nerve pain related to shingles. She denies urinary symptoms. In the differential would be neuropathic pain versus kidney stone or UTI or musculoskeletal back pain. IV line established. Patient was medicated with Toradol as well as morphine and Zofran. CBC with differential and obtained showed a white count of 10.9 with hemoglobin 13 and platelet count of 245. Chemistries unremarkable. Urinalysis was normal without signs for infection. Patient had a CT flank that showed diverticulosis otherwise no acute process. Patient had some good pain relief with medication. At this point she will be discharged to home with a prescription for Edwards. Patient to continue taking her gabapentin as well as Valtrex. Advised to follow-up with primary care physician in 3 to 5 days Lab Data Labs: Laboratory Results - last 24 hr 01/29/24 01/29/24 10:13 11:15 WBC 10.9 RBC 4.07 L Hgb 13.1 Hct 38.8 MCV 95.3 MCH 32.2 H MCHC 33.8 RDW Std Deviation 43.4 RDW Coeff of Fletcher 12.3 Plt Count 245 MPV 9.3 Immature Gran % (Auto) 0.600 Neut % (Auto) 77.7 H Lymph % (Auto) 14.5 L [place] % (Auto) 6.4 Eos % (Auto) 0.4 Baso % (Auto) 0.4 Absolute Neuts (auto) 8.5 H Absolute Lymphs (auto) 1.57 Nucleated RBC % 0 Sodium 133 L Potassium 4.0 Chloride 100 Carbon Dioxide 25.0 Anion Gap 8 BUN 8 Creatinine 0.88 Estim Creat Clear Calc 45.69 Est GFR (MDRD) Af Amer 81 Est GFR (MDRD) Non-Af 67 BUN/Creatinine Ratio 9.1 L Glucose 127 H Calcium 9.3 Urine Color Yellow Urine Clarity Clear Urine pH 5.0 Ur Specific [place] 1.020 Urine Protein 15 H Urine Glucose (UA) Normal Urine Ketones 5 H Urine Occult Blood 10 H Urine Nitrite Negative Urine Bilirubin Negative Urine Urobilinogen Normal Ur Leukocyte Esterase 100 H Radiography Diagnostic Testing: Clinical Impression(s) from Imaging Studies Abdomen/Pelvis CT 01/29/24 10:02 IMPRESSION: Colonic diverticulosis. Atherosclerosis. Electronically Signed: Margaux Lazo MD at 11:25 EDT , Discharge Plan Triage Chief Complaint: Other, Pain/Inj ED Provider: Miriam Santos Dx/Rx/DC Orders Clinical Impression: Back pain Instructions: ED Pain, Acute, Uncertain Cause Prescriptions: New hydrocodone-acetaminophen 5-325 mg tablet 1 tab PO Q4H PRN PRN (Reason: Pain) 2 Days Qty: 15 0RF No Action levothyroxine 100 MCG tablet 100 mcg PO DAILY oxycodone-acetaminophen [oxycodone-acetaminophen] 1 TABLET tablet 1 tab PO Q6H PRN PRN (Reason: pain) 5 Days Qty: 20 0RF oxycodone-acetaminophen [Percocet] 5-325 mg tablet 1 tab PO Q6H PRN (Reason: pain) 7 Days Qty: 28 0RF aspirin 81 mg Tablet,Delayed Release (Dr/Ec) 81 mg PO BID 14 Days Qty: 28 0RF cephalexin 500 mg Capsule 500 mg PO Q8 1 Days Qty: 3 0RF Primary Care Provider: Beth Ji Referrals: Beth Ji MD [Primary Care Provider] - 3-5 Days Print Language: Mongolian Disposition Disposition: Home, Self Care
[2024-01-29] MEDS: Ondansetron 4 MG/2 ML Vial IV (10:16)
[2024-01-29] MEDS: Morphine 4 MG/ML Syringe IV (10:16)
[2024-01-29] MEDS: Ketorolac 15 MG/ML Vial IV (10:16)
[2024-01-29 10:32] LABS: Absolute Lymphocyte Count 1.57 X10^3/uL (0.83-4.51); Absolute Neutrophil Count 8.5 X10^3/uL (2.0-7.7); Basophil# 0.04 X10^3/uL; Basophil% 0.4 % (0-1); Eosinophil# 0.04 X10^3/uL; Eosinophils% 0.4 % (0-5); Hematocrit 38.8 % (37-47); Hemoglobin 13.1 g/dL (12.0-15.0); Lymphocyte # 1.57 X10^3/ul (0.83-4.51); Lymphocyte % 14.5 % (19-41); Mean Corp Hgb Conc 33.8 g/dL (32-36); Mean Corpuscular Hgb 32.2 pg (27.0-32.0); Mean Corpuscular Volume 95.3 fL (81-99); Mean Platelet Vol. 9.3 fl (6.2-12.0); Monocyte% 6.4 % (0-10); NRBC Flagged by Analyzer 0 % (0-5); Neutrophil # 8.45 X10^3/uL (2.7-7.7); Neutrophil % 77.7 % (47-70); Platelet Count 245 K/mm3 (150-450); RBC Distribution Width CV 12.3 % (11.6-14.6); RBC Distribution Width SD 43.4 fl (35.1-43.9); Red Blood Count 4.07 M/mm3 (4.2-5.4); White Blood Count 10.9 K/mm3 (4.4-11.0)
[2024-01-29 10:46] LABS: Anion Gap 8 (5-15); BUN 8 mg/dL (7-18); BUN/Creat Ratio 9.1 RATIO (10-20); Calcium,Total 9.3 mg/dL (8.5-10.1); Chloride 100 mmol/L (98-107); Creatinine, Serum 0.88 mg/dL (0.55-1.02); EST Glomerular Filtration Rate 67 mL/min (>60); Est Glom Filt Rate - Afr Amer 81 mL/min (>60); Estimated Creatinine Clearance 45.69 ml/min; Glucose 127 mg/dL (74-106); Sodium Level 133 mmol/L (136-145)
[2024-01-29 11:23] LABS: Bacteria 0 SEEN /hpf (None Seen); Mucous, Urine 0 SEEN /hpf (<or=2+); Red Blood Cells-Urine 0 SEEN /hpf (0-5); White Blood Cells 0 SEEN /hpf (0-5)
[2024-01-29 11:24] LABS: Color, Urine Yellow (Yellow); Glucose, Dipstick Normal (Normal); Ketone-Dipstick 5 mg/dl (Negative); Leukocyte Esterase-Dipstick 100 /ul (Negative); Nitrite-Dipstick Negative (Negative); Occult Blood-Urine 10 /ul (Negative); Protein-Dipstick 15 mg/dl (Negative); Urine Bilirubin Dipstick Negative (Negative); Urine Clarity Clear (Clear); Urine Urobilinogen Normal (Normal)
[2024-01-29 11:32] LABS: Squamous Epithelial Cells - UA 0-5 SEEN /hpf (5-10)
[2024-01-29 11:52] VITALS: BP 106/71; PULSE 68; RESP 16; TEMP 36.6; O2SAT 99
[2024-01-29] MEDS: 0.9% Normal Saline (1000mL) 1,000 ML 150 ML IV (11:56)
== END 2024-01-29 12:01 | disposition home or self-care (01) ==
PROVIDERS: Emergency Provider Emergency Medicine; PCP Family Medicine; Visit Provider Emergency Medicine
DX: M54.9 Dorsalgia, unspecified (principal); K57.30 Diverticulosis of large intestine without perforation or abscess without bleeding; E07.9 Disorder of thyroid, unspecified; M19.90 Unspecified osteoarthritis, unspecified site; Z88.2 Allergy status to sulfonamides; Z86.19 Personal history of other infectious and parasitic diseases; Z79.82 Long term (current) use of aspirin; Z79.890 Hormone replacement therapy
CPT/HCPCS: 74176; 80048; 81001; 85025; 96374; 96375; 96376; 99283; A4216; J2405

== ENCOUNTER → 2024-08-24 | Outpatient (CLI) | payer MEDICARE, SELFPAY ==
[2024-08-24 10:53] LABS: Cholesterol 214 mg/dL (<=200); High Density Lipoprotein 67 mg/dL; Low Density Lipoprotein Calc. 128 mg/dL; T4 Total, Thyroxin 10.3 ug/dL (4.8-13.9); Thyroid Stim Hormone (TSH) 0.538 uIU/mL (0.300-4.200); Triglycerides 93 mg/dL; Very Low Density Lipoprotein 19 mg/dL (5-40)
== END | disposition home or self-care (01) ==
LOC: MFPLAB 08:53
PROVIDERS: PCP Family Medicine; Referring Provider Family Medicine; Visit Provider Family Medicine
DX: E03.9 Hypothyroidism, unspecified (principal); Z13.220 Encounter for screening for lipoid disorders
CPT/HCPCS: 36415; 80061; 84436; 84443

== ENCOUNTER → 2024-09-20 | Outpatient (CLI) | payer MEDICARE, SELFPAY ==
--- NOTE | 2024-09-20 12:20 | BI_ITS ---
EXAM: SCRN MAMM (CAD)W/KEVON BILAT 09/20/2024 CLINICAL HISTORY: F, Age 74 y/o , SCREENING FOR BREAST CANCER TECHNIQUE: Bilateral screening digital breast tomosynthesis with 2D and 3D images. Computer aided detection. COMPARISON: Prior exam(s) dated 09/16/2023, 08/27/2022, 09/03/2021. FINDINGS: TISSUE DENSITY: The breast tissue is composed of scattered area of fibroglandular density. Bilateral Breast Mammographic Findings: No significant masses, calcifications or other abnormalities are identified. BI/SCRN MAMM (CAD)W/KEVON BILAT IMPRESSION: Right Breast: BIRADS 1 NEGATIVE. Left Breast: BIRADS 1 NEGATIVE. OVERALL FINAL ASSESSMENT: BIRADS 1 NEGATIVE. RECOMMENDATION: Routine annual follow-up in 1 Year A letter with findings and recommendations will be mailed to the patient. Reading Location: [id number]
== END | disposition home or self-care (01) ==
LOC: OPBI 12:03
DX: Z12.31 Encounter for screening mammogram for malignant neoplasm of breast (principal)
CPT/HCPCS: 77063; 77067

== ENCOUNTER 2024-12-27 12:30 | Outpatient (RCR) | payer MEDICARE, SELFPAY ==
--- NOTE | 2024-11-22 09:11 | HP.PTEVAL_ITS ---
Patient's Visit Information Visit Information Visit Information: LUPIS GARCIA is a 74 year old F referred to Physical Therapy by SHAWNA Morrison with a diagnosis of SPASMS ,THORACIC. Date of Evaluation: 11/22/24 Physical Therapist: Elliot Rosenbaum, PT, Cert MDT, OCS Visit Plan Frequency: 2x /Week Duration: 4 Weeks Plan: PATIENT HAS H/O OSTEOPOROSIS T9-12 PT INTERVENTIONS POSTURAL EX'S ,THORACIC STRENGTHENING ,WB ACTIVITIES ,FUNCTIONAL STRENGTHENING AND ACTIVITY MODIFICATION Subjective Subjective: This 74 y/o female presents [facility] physical therapy with thoracic pain. Patient has had chronic pain which is intermittent. 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 Location of symptoms located mid thoracic region below scapular. Described as ache. Aggravating factors standing ,lifting . Patient symptoms can affect housework cooking ,cleaning . Alleviating rest ,heat. Coughing/sneezing -, Bowel/bladder -.Symptoms doesn't affects sleeping. No imaging or medication. Patient has of osteoporosis bone density 60% loss of height of the T9 vertebrae and approximately 50% loss of height of the T12 vertebrae. Patient has no h/o injury. Patient ex's bike ,machines. Patient condition affects QOL and housework task. Goals to decrease pain with standing ADLS and biking and manage pain. SOCIAL: SINGLE VOCATION: RETIRED LEISURE: bike ,QUILTY Objective Objective: POSTURE: mild forward posture ,thoracic kyphosis NEURO: denies paresthesia/tingling ,reflexes intact PALAPTION: unremarkable AROM: BUE WFL MMT: BUE 4/5 THORACIC ROM: flexion min/mod loss , mod loss ,rotation mod loss no pain Special Tests C/S Radiculapathy - Left Upper limb tension test: Negative C/S Radiculapathy - Right Upper limb tension test: Negative C/S Radiculapathy - Left Spurlings: Negative C/S Radiculapathy - Right Spurlings: Negative C/S Radiculapathy - Left Cervical distraction: Negative C/S Radiculapathy - Right Cervical distraction: Negative C/S Radiculapathy - Left Relief test: Negative C/S Radiculapathy - Right Relief test: Negative Thoracic Sitting: Flexion - Mechanical Response: No effect Thoracic Sitting: Flexion - Symptoms During Testing: No effect Thoracic Sitting: Flexion - Symptoms After Testing: No effect Thoracic Sitting: Extension - Mechanical Response: No effect Thoracic Sitting: Extension - Symptoms During Testing: No effect Thoracic Sitting: Extension - Symptoms After Testing: No effect Thoracic Sitting: Right rotation - Mechanical Response: No effect Thoracic Sitting: Right Rotation - Symptoms During Testing: No effect Thoracic Sitting: Right Rotation - Symptoms After Testing: No effect Thoracic Sitting: Left rotation - Mechanical Response: No effect Thoracic Sitting: Left Rotation - Symptoms During Testing: No effect Thoracic Sitting: Left Rotation - Symptoms After Testing: No effect Balance/Special Test Scores Oswestry Low Back Score: 12 Goals Goal 1:: Patient to be I with HEP for thoracic Goal Time Frame: 4-6 Weeks Goal 2:: Patient improve thoracic ROM for function of recovery for ADLS Goal Time Frame: 4-6 Weeks Goal 3:: Patient to demonstrate 70% improvement with less pain during standing with ADLS Goal Time Frame: 4-6 Weeks Goal 4:: Patient to improve back oswestry score by 5 points to improve QOL Goal Time Frame: 4-6 Weeks Rehabilitation Potential Physical Therapy Diagnosis: This patient has thoracic pain H/O osteoporosis T9- 12 which is chronic with decrease ROM ,pain standing during ADLS thus benefit from skilld PT Rehabilitation Potential: Good Anticipated Interventions Patient/Client Instruction: Educate patient on: Condition and Plan of Care For the Purpose of:: To decrease pain, To increase ROM, To improve muscle performance and motor function, To improve ability to perform ADL's, To increase tolerance to activity/condition/position, To improve ability of physical actions for home/community/work/leisure, To improve health of tissue, To decrease soft tissue restriction, To increase flexibility/ROM and To improve tolerance to ADL's Therapeutic Exercise to Include: Strength training, Postural training, Flexibilty training and Dynamic Lumbar Stabilization Comment: THORACIC ,WB ACTIVITIES For the Purpose of:: To decrease pain, To increase ROM, To improve muscle performance and motor function, To improve ability to perform ADL's, To increase tolerance to activity/condition/position, To improve ability of physical actions for home/community/work/leisure, To increase flexibility/ROM and To improve tolerance to ADL's Text: Thank you for the opportunity to evaluate your patient. For Medicare and Medicare HMO plans, please review the plan of care and approve it. It will need to be FAXED BACK to us at [phone] for Medicare purposes. For Medicare only, by signing this I certify the plan of care. Please let me know if there are questions or concerns regarding this plan of care. Physician Signature: Date:
--- NOTE | 2024-12-27 13:18 | HP.PTDCSUM ---
Discharge Summary D/C summary: It has been my pleasure to treat LUPIS GARCIA referred by SHAWNA Morrison, with the diagnosis of SPASMS ,THORACIC for a total of 9 visit(s). Discharge Date: 12/27/24 Please see the following information for a summary of their discharge status. Subjective Subjective: I think I can do everything on own Can do most anything extended standing like cooking Overall Improvement % Improvement: 65 Objective Objective/Function: POSTURE: mild forward posture ,thoracic kyphosis NEURO: denies paresthesia/tingling ,reflexes intact PALAPTION: unremarkable AROM: BUE WFL MMT: BUE 4/5 THORACIC ROM: flexion min/mod loss , mod loss ,rotation mod loss no pain Goals Goal 1:: Patient to be I with HEP for thoracic Goal Progress: Goal Met Goal 2:: Patient improve thoracic ROM for function of recovery for ADLS Goal Progress: Goal Met Goal 3:: Patient to demonstrate 70% improvement with less pain during standing with ADLS Goal Progress: Goal Met Goal 4:: Patient to improve back oswestry score by 5 points to improve QOL Goal Progress: Goal Met Plan Plan: D/C D/C Information Discharge Comments: HEP d/c sentence: If there are questions or concerns regarding this patient's physical therapy, please feel free to call me at [phone]. Thank you for the referral of this patient. Sincerely, Elliot Rosenbaum, PT, Cert MDT, OCS Balance/Gait/Functional tests Balance/Special Test Scores Oswestry Low Back Score: 7 Improvement % Improvement: 65
== END 2024-12-27 19:00 | disposition home or self-care (01) ==
LOC: PT 12:30
DX: M62.830 Muscle spasm of back (principal)
CPT/HCPCS: 97110; 97162; 97530

== ENCOUNTER 2025-01-02 13:17 | Emergency (ER) | payer MEDICARE, SELFPAY ==
[2025-01-02 13:17] VITALS: BP 141/77; PULSE 65; RESP 19; TEMP 36; O2SAT 99; BMI 20.9
[2025-01-02 14:42] LABS: Hematocrit 38.9 % (37-47); Hemoglobin 13.5 g/dL (12.0-15.0); Immature Granulocytes Count 0.010 X10^3/uL (0.0-0.0); Mean Corp Hgb Conc 34.7 g/dL (32-36); Mean Corpuscular Volume 95.3 fL (81-99); Mean Platelet Vol. 9.6 fl (6.2-12.0); NRBC Flagged by Analyzer 0 % (0-5); Platelet Count 239 K/mm3 (150-450); RBC Distribution Width CV 12.2 % (11.6-14.6); RBC Distribution Width SD 42.8 fl (35.1-43.9); Red Blood Count 4.08 M/mm3 (4.2-5.4); White Blood Count 7.7 K/mm3 (4.4-11.0)
[2025-01-02 15:17] LABS: Mucous, Urine 0 SEEN /hpf (<or=2+); Squamous Epithelial Cells - UA 0 SEEN /hpf (5-10)
[2025-01-02 15:23] LABS: Color, Urine Yellow (Yellow); Glucose, Dipstick Normal (Normal); Ketone-Dipstick Negative (Negative); Leukocyte Esterase-Dipstick 100 /ul (Negative); Nitrite-Dipstick Negative (Negative); Occult Blood-Urine 10 /ul (Negative); Protein-Dipstick 15 mg/dl (Negative); Specific Gravity, Urine 1.020 (1.002-1.030); Urine Bilirubin Dipstick Negative (Negative)
--- NOTE | 2025-01-02 15:32 | EDS_ITS ---
HPI History of Present Illness Chief Complaint: Flank Pain Informant: patient and family Narrative Narrative: Waxing waning right flank pain since last evening. States intermittent sharp nature. No radiating symptoms. Mild nausea when pain comes. No vomiting. No urinary symptoms dysuria or hematuria or frequency. She has had shingles before and was previously on gabapentin. Currently off of it. No current rash. No history of kidney stones. She states seen in the last couple years for similar was put on gabapentin after pain control in the ED. Denies history of kidney injury or gastric ulcers. Prior similar symptoms: Yes PFSH PFSH Medical History Wears glasses Alcohol use Thyroid disease Osteoarthritis High cholesterol Non-smoker History of stress test History of irregular heartbeat Home Medications ?Medication ?Instructions ?Recorded ?Last Taken ?Type levothyroxine 100 mcg tablet 100 mcg PO DAILY thyroid 01/03/17 Unknown History oxycodone-acetaminophen 5 mg-325 1 tab PO Q6H PRN PRN pain 5 days 01/19/21 Unknown Rx mg tablet #20 TABLETS aspirin 81 mg tablet,delayed 81 mg PO BID 14 days #28 tabs 02/04/21 Unknown Rx release cephalexin 500 mg capsule 500 mg PO Q8 1 day #3 caps 0 02/04/21 Unknown Rx oxycodone-acetaminophen 5 mg-325 1 tab PO Q6H PRN pain 7 days #28 02/04/21 Unknown Rx mg tablet (Percocet) tabs hydrocodone-acetaminophen 5-325mg 1 tab PO Q4H PRN PRN Pain 2 days 01/29/24 Unknown Rx 5mg-325mg #15 TABLETS gabapentin 300 mg capsule 300 mg PO QHS #30 caps 01/02 Unknown Rx hydrocodone-acetaminophen 5-325mg 1 tab PO Q6H PRN PRN Pain 3 days 01/02/25 Unknown Rx 5mg-325mg #12 TABLETS ondansetron 4 mg disintegrating 4 mg PO Q8H PRN PRN Na usea #10 tabs 01/02/25 Unknown Rx tablet Allergy/AdvReac Type Severity Reaction Status Date / Time Sulfa (Sulfonamide AdvReac Nausea Verified 01/29/24 09:19 Antibiotics) Surgical History History of colonoscopy History of partial hysterectomy History of thyroid surgery History of appendectomy Social History household members: none housing: house Smoking Status: Never smoker alcohol intake: current alcohol intake frequency: holidays/special occasions only substance use type: does not use ROS ROS ED Constitutional Constitutional ED: Denies chills, fever(s) or sweats ENT ENT ED: Denies sore throat Cardiovascular Cardiovascular: Denies chest pain, leg edema, palpitations or racing heartbeat Respiratory/Chest Respiratory/Chest: Denies cough, dyspnea or dyspnea on exertion Gastrointestinal Gastrointestinal: Denies abdominal pain, diarrhea, nausea or vomiting Genitourinary Genitourinary ED: Denies dysuria, hematuria or urinary frequency Musculoskeletal Musculoskeletal: Reports back pain; Denies extremity pain or neck pain Integumentary Denies rash or wounds Neurologic Neurologic: Denies headache(s), paresthesias or weakness EXAM Physical Exam Const Vital Signs: 01/02/25 13:17 01/02/25 15:51 01/02/25 17:00 Temperature 96.8 F L Temperature Source Temporal Pulse Rate 65 62 62 Respiratory Rate 19 H 16 16 Blood Pressure 141/77 H 151/73 H 144/73 H Blood Pressure Mean 98 99 96 Pulse Ox 99 99 98 Oxygen Delivery Method Room Air Room Air Room Air Positive well nourished and well developed General Appearance ED: well developed and NAD HEENT Reports moist mucous membranes normocephalic and atraumatic Eyes General Eye ED: Yes normal appearance of both eyes Neck full ROM Chest Wall Chest: Negative for tenderness Resp normal respiratory effort and normal air movement Effort and Inspection: symmetric chest movement; Negative for respiratory distress Cardio regular rate, regular rhythm and no murmurs Peripheral Pulses: pulses 2+ throughout GI normal to inspection, nondistended, normoactive bowel sounds and non-tender Palpation: Negative for guarding or rebound tenderness present Back/Spine Back/Spine Narrative: Tenderness right flank there is no current rash noted. No ecchymosis. Extremity normal to inspection General Extremety ED: Negative for edema or tenderness General Extremity: Negative for edema Neuro oriented x3 and no sensory deficits noted Sensorium / Orientation: awake and alert Skin no rashes or lesions noted and no wounds MDM MDM MDM Narrative Medical decision making narrative: Interventions / MDM: Differential diagnosis: Neuropathy, history of shingles, flank pain, kidney stones Diagnosis considered but do not suspect: N/A My EKG interpretation: N/A Imaging independently reviewed and interpreted by myself: CT abdomen pelvis: Possible 1 mm kidney stone right UVJ region. No hydronephrosis. External documents reviewed: January 2024 workup however noted left flank pain in the records and treated. PCP had her on gabapentin and Valtrex. [place] was prescribed at that time. CT scan during that time was negative for any kidney stones. Test considered but not ordered:N/A ED course: Reporting similar symptoms with her shingles pain there is no current rash there is no radicular symptoms. Laboratory studies checked along with urine. Will start Toradol and gabapentin. 1634: Labs stable urine hematuria 100 leukocytes 5-10 WBCs. Urine culture sent. She denies dysuria or frequency. Reevaluation she states pain is more frequent sharp nature. Will order for morphine. Will obtain CT scan to rule out any kidney stones. 1829: Clinically feeling better on reevaluation after morphine. CT scan possible 1 mm stone right UVJ area have there is no hydro per radiology. I discussed results with patient and family in the room. Clinically feeling better. She did confirm from records her shingles was on the opposite side. I discussed with 1 day of symptoms monitor for any rashes that could be shingles on the right side. At this time we will continue gabapentin. Will give prescription for Zofran and [place] to use as needed. Outpatient follow-up. All questions were answered. Re-evaluation: stable Disposition discussed with patient/family/significant other: Patient and family Case discussed with consulting clinician: N/A This note was generated with Detectent dictation software. It may contain incorrect words, spelling, and punctuation that were not noted in checking the note before signing. Lab Data Attestation: I reviewed the patient's lab results. Labs: Laboratory Results - last 24 hr 01/02/25 01/02/25 14:26 15:07 WBC 7.7 RBC 4.08 L Hgb 13.5 Hct 38.9 MCV 95.3 MCH 33.1 H MCHC 34.7 RDW Std Deviation 42.8 RDW Coeff of [place] 12.2 Plt Count 239 MPV 9.6 Immature Gran % (Auto) 0.100 Neut % (Auto) 68.4 Lymph % (Auto) 20.7 [place] % (Auto) 9.3 Eos % (Auto) 0.6 Baso % (Auto) 0.9 Absolute Neuts (auto) 5.3 Absolute Lymphs (auto) 1.60 Nucleated RBC % 0 Sodium 133 Potassium 4.5 Chloride 101 Carbon Dioxide 22.6 Anion Gap 10 BUN 12 Creatinine 0.76 Estim Creat Clear Calc 49.49 L Est GFR (MDRD) Non-Af 81 BUN/Creatinine Ratio 16.0 Glucose 126 H Calcium 9.3 Total Bilirubin 0.41 AST 22 ALT 12 Alkaline Phosphatase 83 Total Protein 7.1 Albumin 4.4 Globulin 2.7 Albumin/Globulin Ratio 1.6 Urine Color Yellow Urine Clarity Clear Urine pH 6.0 Ur Specific [place] 1.020 Urine Protein 15 H Urine Glucose (UA) Normal Urine Ketones Negative Urine Occult Blood 10 H Urine Nitrite Negative Urine Bilirubin Negative Urine Urobilinogen Normal Ur Leukocyte Esterase 100 H Urine RBC 0-5 SEEN Urine WBC 5-10 SEEN Ur Squamous Epith Cells 0 SEEN Urine Bacteria 0 SEEN Urine Mucus 0 SEEN Radiography Diagnostic Testing: Clinical Impression(s) from Imaging Studies Abdomen/Pelvis CT 01/02/25 17:00 IMPRESSION: *One millimeter calcific density at the region of the right ureterovesical junction, possibly representing a ureteral calculus. No hydroureteronephrosis. *Scattered colonic diverticulosis without evidence of diverticulitis. *Osseous demineralization and degenerative spinal changes. *Moderate atherosclerosis. Reading Location: [facility] Discharge Plan Triage Chief Complaint: Flank Pain ED Provider: John Licea Dx/Rx/DC Orders Clinical Impression: Acute right flank pain, History of shingles Instructions: ED Flank Pain with Uncertain Cause Prescriptions: New hydrocodone-acetaminophen 5-325 mg tablet 1 tab PO Q6H PRN PRN (Reason: Pain) 3 Days Qty: 12 0RF gabapentin 300 mg capsule 300 mg PO QHS Qty: 30 0RF ondansetron 4 mg tablet,disintegrating 4 mg PO Q8H PRN PRN (Reason: Nausea) Qty: 10 0RF No Action levothyroxine 100 MCG tablet 100 mcg PO DAILY oxycodone-acetaminophen [oxycodone-acetaminophen] 1 TABLET tablet 1 tab PO Q6H PRN PRN (Reason: pain) 5 Days Qty: 20 0RF oxycodone-acetaminophen [Percocet] 5-325 mg tablet 1 tab PO Q6H PRN (Reason: pain) 7 Days Qty: 28 0RF aspirin 81 mg Tablet,Delayed Release (Dr/Ec) 81 mg PO BID 14 Days Qty: 28 0RF cephalexin 500 mg Capsule 500 mg PO Q8 1 Days Qty: 3 0RF hydrocodone-acetaminophen 5-325 mg tablet 1 tab PO Q4H PRN PRN (Reason: Pain) 2 Days Qty: 15 0RF Primary Care Provider: Jimbo Reynoso Referrals: Jesus Vu [employer]SEMBLER, [employer] [Non-Staff -Ordering Privileges] - Activity Restrictions/Additional Instructions: Labs were normal. Urine no clear infection culture sent and pending. You will be contacted if positive that requires treatment. Your CT scan questionable 1 mm stone right UVJ however there was no hydroureter or hydronephrosis. There is no current rash, monitor for any rash like could be similar to your previous shingles on your other side. Take medications as prescribed. If you develop any worsening symptoms fevers, return to ED for reevaluation. Print Language: Vietnamese Disposition Disposition: Home, Self Care
[2025-01-02 15:38] LABS: Red Blood Cells-Urine 0-5 SEEN /hpf (0-5)
[2025-01-02 15:38] LABS: AST(SGOT) 22 U/L (<=31); Alanine Aminotransfer ALT/SGPT 12 U/L (<=34); Albumin, Serum 4.4 g/dL (3.4-4.8); Alkaline Phosphatase 83 U/L (35-104); Anion Gap 10 (5-15); BUN 12 mg/dL (4-19); BUN/Creat Ratio 16.0 RATIO (10-20); Calcium,Total 9.3 mg/dL (7.6-11.0); Carbon Dioxide 22.6 mmol/L (21.0-32.0); Chloride 101 mmol/L (98-108); Estimated Creatinine Clearance 49.49 ml/min (50-250); Globulin 2.7 g/dL (2.2-4.2); Glucose 126 mg/dL (70-99); Potassium 4.5 mmol/L (3.3-5.1)
[2025-01-02 15:51] VITALS: BP 151/73; PULSE 62; RESP 16; O2SAT 99
[2025-01-02 17:00] VITALS: BP 144/73; PULSE 62; RESP 16; O2SAT 98
--- NOTE | 2025-01-02 17:00 | CT_ITS ---
PROCEDURE: ABDOMEN/PELVIS WITHOUT CONT 01/02/2025 REASON FOR EXAM: RIGHT FLANK PAIN TECHNIQUE: ABDOMEN/PELVIS WITHOUT CONT Noncontrast technique limits evaluation of the abdominal and pelvic viscera. Coronal and Sagittal reconstruction series were provided. One or more dose reduction techniques were used (e.g., Automated exposure control, adjustment of the mA and/or kV according to patient size, use of iterative reconstruction technique). RADIATION DOSE SUMMARY: CTDlvol: 6 mGy DLP: 260 mGycm FINDINGS: *johnson Bases: Clear. *Soft Tissues: Unremarkable. *Osseous Structures: Degenerative changes of the spine. Osseous demineralization. *Vessels: Moderate atherosclerosis. Normal caliber abdominal aorta. *Lymph Nodes: No suspicious lymphadenopathy. *Liver/Gallbladder/Pancreas/Adrenals: Unremarkable. *Kidneys/Ureters/Bladder: *Bilateral kidneys unremarkable. No nephrolithiasis. *No hydroureteronephrosis. *One millimeter calcific density in the region of the insertion of the right ureter. The right ureter is not discretely visualized due to lack of contrast. *Urinary bladder unremarkable. *Pelvic Organs: Uterus not well-visualized; may be surgically absent or atrophic. *Bowel: Few scattered colonic diverticuli without surrounding inflammation. *Appendix: Not discretely visualized due to lack of contrast and paucity of mesenteric fat. No secondary signs of acute appendicitis. CT/Abdomen/Pelvis without Cont IMPRESSION: *One millimeter calcific density at the region of the right ureterovesical junc tion, possibly representing a ureteral calculus. No hydroureteronephrosis. *Scattered colonic diverticulosis without evidence of diverticulitis. *Osseous demineralization and degenerative spinal changes. *Moderate atherosclerosis. Reading Location: [id number]
[2025-01-02 18:44] VITALS: BP 134/78; PULSE 64; RESP 18; TEMP 36.6; O2SAT 99
== END 2025-01-02 18:44 | disposition home or self-care (01) ==
PROVIDERS: Emergency Provider Emergency Medicine; PCP Family Medicine; Visit Provider Emergency Medicine
DX: R10.9 Unspecified abdominal pain (principal); Z90.710 Acquired absence of both cervix and uterus; E78.00 Pure hypercholesterolemia, unspecified; Z90.49 Acquired absence of other specified parts of digestive tract; Z86.19 Personal history of other infectious and parasitic diseases
CPT/HCPCS: 74176; 80053; 81001; 85025; 87086; 87088; 96374; 96375; 99283; A4216